=== PATIENT | female | born 1995 | race Caucasian/White ===

== ENCOUNTER 2017-08-10 10:34 | Emergency (ER) | payer BC ==
[2017-08-10 10:41] VITALS: BP 128/78; PULSE 78; RESP 18; TEMP 98.8; O2SAT 100
--- NOTE | 2017-08-10 11:31 | RAD ---
PROCEDURE: Radiographs of the right great toe. TECHNIQUE:: AP radiograph of the right foot, with oblique and lateral view of the right great toe. COMPARISON: None. FINDINGS: BONES: There is a tiny bony density adjacent to the medial aspect base proximal phalanx at the DIP joint seen on image 1 series 3. That could represent a tiny chip fracture versus old posttraumatic mineralization. . JOINTS: Normal. SOFT TISSUES: Normal. OTHER FINDINGS: None IMPRESSION: Questionable tiny chip fracture medial aspect base distal phalanx right great toe at the level of the DIP joint versus old posttraumatic mineralization
--- NOTE | 2017-08-10 14:44 | C.PDOC ---
History Of Present Illness 21 year old female presents to the emergency department with complaints of right great toe pain for the past two days status-post kicking a soccer ball with no shoes on. Patient is able to ambulate without any difficulty and has no other complaints at this time. Chief Complaint (Nursing): Lower Extremity Problem/Injury History Per: Patient History/Exam Limitations: no limitations Onset/Duration Of Symptoms: Hrs Current Symptoms Are (Timing): Still Present - Ankle/Foot Description Of Injury: Struck Against Object (soccer ball) Past Medical History Reviewed: Historical Data, Nursing Documentation, Vital Signs Vital Signs: Last Vital Signs Temp 98.8 F 08/10/17 10:37 Pulse 78 08/10/17 10:37 Resp 18 08/10/17 10:37 BP 128/78 08/10/17 10:37 Pulse Ox 100 08/10/17 14:50 - Medical History PMH: No Chronic Diseases Surgical History: No Surg Hx Family History: States: No Known Family Hx - Social History Hx Alcohol Use: No Hx Substance Use: No - Immunization History Hx Tetanus Toxoid Vaccination: No Hx Influenza Vaccination: No Hx Pneumococcal Vaccination: No Review Of Systems Except As Marked, All Systems Reviewed And Found Negative. Musculoskeletal: Positive for: Foot Pain (right great toe) Physical Exam - Physical Exam Appears: Non-toxic, No Acute Distress Skin: Warm, Dry Head: Atraumatic, Normacephalic Eye(s): bilateral: Normal Inspection Nose: Normal Neck: Normal, Supple Cardiovascular: Rhythm Regular Respiratory: Normal Breath Sounds Extremity: Normal ROM, Tenderness (to the proximal aspect of the right great toe ), No Other (ankle or knee tenderness) Neurological/Psych: Oriented x3, Normal Speech, Normal Cognition ED Course And Treatment O2 Sat by Pulse Oximetry: 100 (RA) Pulse Ox Interpretation: Normal - Other Rad XR Right Great Toe X-Ray: Viewed By Me, Read By Radiologist Interpretation: IMPRESSION: Questionable tiny chip fracture medial aspect base distal phalanx right great toe at the level of the DIP joint versus old posttraumatic mineralization Progress Note: Plan: XR Right Great Toe. Right great toe was renee taped. Patient will follow up with her PMD. Disposition - Disposition Referrals: [facility], [Non-Staff] - Disposition: HOME/ ROUTINE Disposition Time: 11:15 Condition: GOOD Additional Instructions: JAMES MONTILLA, thank you for letting us take care of you today. Your provider was Shukri Burnham DO and you were treated for RT FOOT PAIN. The emergency medical care you received today was directed at your acute symptoms. If you were prescribed any medication, please fill it and take as directed. It may take several days for your symptoms to resolve. Return to the Emergency Department if your symptoms worsen, do not improve, or if you have any other problems. Please contact your doctor or call one of the physicians/clinics you have been referred to that are listed on the Patient Visit Information form that is included in your discharge packet. Bring any paperwork you were given at discharge with you along with any medications you are taking to your follow up visit. Our treatment cannot replace ongoing medical care by a primary care provider outside of the emergency department. Thank you for allowing the [facility] team to be part of your care today. Follow up with your primary care doctor in 3-4 days for re-evaluation and further management. Instructions: Toe Injury (DC) Forms: Lot18 ([place]inese) - Clinical Impression Clinical Impression: Toe pain - Scribe Statement The provider has reviewed the documentation as recorded by the Scribe (Austin Millervi) Provider Attestation: All medical record entries made by the Scribe were at my direction and personally dictated by me. I have reviewed the chart and agree that the record accurately reflects my personal performance of the history, physical exam, medical decision making, and the department course for this patient. I have also personally directed, reviewed, and agree with the discharge instructions and disposition.
== END 2017-08-10 11:27 | disposition home or self-care (01) ==
LOC: C.ER 10:34
DX: M79.674 Pain in right toe(s) (principal)